=== PATIENT | male | born 1990 | race Hispanic/Latino ===

== ENCOUNTER 2021-07-06 18:57 | Emergency (ER) | payer SELFPAY ==
[~2021-07-06] VITALS: Ht 177.8 cm; Wt 90.7 kg
[2021-07-06 19:27] LABS: BASOPHILS % (AUTO) 0.5 % (0.0-5.0); EOSINOPHILS % (AUTO) 3.5 % (0.0-8.0); HEMATOCRIT 39.3 % (42-54); LYMPHOCYTES % (AUTO) 21.8 % (21.0-51.0); MEAN CORPUSCULAR HGB CONC 35.1 g/dL (32.0-36.0); MEAN CORPUSCULAR VOLUME 91.2 fL (79-99); MONOCYTES % (AUTO) 7.4 % (3.0-13.0); PLATELET COUNT (AUTO) 272 K/uL (130-400); RED BLOOD CELL COUNT(AUTO) 4.31 MIL/uL (4.50-6.20); RED CELL DISTRIBUTION WIDTH 11.9 % (11.0-15.5); WHITE BLOOD COUNT (AUTO) 9.9 K/uL (4.8-10.8)
[2021-07-06] MEDS ORDERED: HYDROCODONE/ACETAMINOPHEN 10/325 MG TAB PO ONE (19:30)
[2021-07-06] MEDS ORDERED: TETRACAINE HCL 0.5% 4 ML OPHTH SOLN OP SCH (19:30)
[2021-07-06 19:37] LABS: CREATININE 1.6 mg/dL (0.5-1.5); POTASSIUM 4.8 mmol/L (3.5-5.1)
[2021-07-06 19:42] LABS: ALBUMIN 3.7 g/dL (3.5-5.0); BILIRUBIN,TOTAL 0.3 mg/dL (0.2-1.0); CRP QUANTITATIVE 9.1 mg/L (0.00-9.0); TOTAL PROTEIN, SERUM 8.2 g/dL (6.0-8.3)
[2021-07-06] MEDS ORDERED: GENTAMICIN SULFATE 0.3% 5ML DROPS OS SCH (20:00)
[2021-07-06] MEDS ORDERED: 0.9%NACL 1000ML 1,000 ML IV ONE (20:30)
[2021-07-06] MEDS ORDERED: INSULIN HUMULIN R 100 UNIT/ML 3ML SQ ONE (20:30)
[2021-07-06 21:33] VITALS: BP 145/78
== END 2021-07-06 21:48 | disposition home or self-care (01) ==
LOC: EDH 18:57
DX: H10.9 Unspecified conjunctivitis (principal); E11.65 Type 2 diabetes mellitus with hyperglycemia; I10 Essential (primary) hypertension; Z79.4 Long term (current) use of insulin
CPT/HCPCS: 36415; 80053; 85025; 86140; 96360; 96372; 99284; J1815; J7030

== ENCOUNTER 2025-01-03 12:00 | Emergency (ER) | payer SELFPAY ==
[~2025-01-03] VITALS: Ht 177.8 cm; Wt 86.2 kg
[2025-01-03 12:03] VITALS: BP 123/71; PULSE 116; TEMP 98.1
[2025-01-03] MEDS: TETRACAINE HCL 0.5% 4 ML OPHTH SOLN OP ONE (12:53)
[2025-01-03 13:02] LABS: BASOPHILS # (AUTO) 0.03 K/uL (0.00-0.20); BASOPHILS % (AUTO) 0.3 % (0.0-5.0); EOSINOPHILS # (AUTO) 0.14 K/uL (0.00-0.70); EOSINOPHILS % (AUTO) 1.5 % (0.0-8.0); HEMATOCRIT 40.1 % (42-54); IMMATURE GRANULOCYTE ABSOLUTE 0.08 K/uL (0-1); LYMPHOCYTES # (AUTO) 1.7 K/uL (1.0-4.8); LYMPHOCYTES % (AUTO) 18.2 % (21.0-51.0); MEAN CORPUSCULAR HEMOGLOBIN 31.3 pg (27.0-33.0); MEAN CORPUSCULAR HGB CONC 35.4 g/dL (32.0-36.0); MEAN CORPUSCULAR VOLUME 88.3 fL (79-99); MONOCYTES # (AUTO) 0.5 K/uL (0.1-1.0); MONOCYTES % (AUTO) 4.9 % (3.0-13.0); NEUTROPHILS # (AUTO) 6.8 K/uL (1.8-7.7); NEUTROPHILS % (AUTO) 74.2 % (40.0-77.0); PLATELET COUNT (AUTO) 299 K/uL (130-400); RED BLOOD CELL COUNT(AUTO) 4.54 MIL/uL (4.50-6.20); RED CELL DISTRIBUTION WIDTH 11.8 % (11.0-15.5); WHITE BLOOD COUNT (AUTO) 9.2 K/uL (4.8-10.8)
[2025-01-03] MEDS: FLUORESCEIN SODIUM 1 STRIP STRIP ONE (13:05)
[2025-01-03] MEDS: FLUORESCEIN SODIUM 1 STRIP STRIP OP ONE (13:05)
[2025-01-03 13:11] LABS: CREATININE 1.5 mg/dL (0.5-1.3); POTASSIUM 5.1 mmol/L (3.5-5.1)
--- NOTE | 2025-01-03 13:32 | ERN ---
General Chief Complaint: Multiple Complaints Stated Complaint: MULTIPLE COMPLAINTS Time Seen by MD: 12:04 Source: patient History of Present Illness Initial Comments PATIENT IS A 34-YEAR-OLD MALE COMING IN COMPLAINING OF EYE PAIN. PATIENT STATES THAT THE EYE PAIN BEGAN YESTERDAY. HE ALSO STATES THAT HE DOES HAS A HISTORY UVEITIS. 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 Allergies: Coded Allergies: lisinopril (Unverified Allergy, Unknown, 07/06/21) Past Medical History Past Medical History: Diabetes-Type II, Hypertension Past Surgical History: None Family History Family History: Negative Social History Social History: Negative ROS Dictation CONSTITUTIONAL: NO CHILLS, NO FEVER, NO WEAKNESS, NO DIAPHORESIS, NO MALAISE. HEAD/FACE: NO SIGNS OF TRAUMA. EENT: NO EYE PAIN, NO BLURRED VISION, NO TEARING, NO DOUBLE VISION, NO EAR P AIN, NO EAR DISCHARGE, NO NOSE PAIN, NO NASAL CONGESTION, NO THROAT PAIN, NO THROAT SWELLING, NO MOUTH PAIN. RESPIRATORY: NO COUGH, NO ORTHOPNEA, NO SOB, NO STRIDOR, NO WHEEZING. CARDIOVASCULAR: NO CHEST PAIN, NO EDEMA, NO PALPITATIONS, NO SYNCOPE. GASTROINTESTINAL/ABDOMINAL: NO ABDOMINAL PAIN, NO CONSTIPATION, NO DIARRHEA, NO NAUSEA, NO VOMITING. GENITOURINARY: NO ABNORMAL DISCHARGE, NO DYSURIA, NO FREQUENT URINATION, NO HEMATURIA. NO COMPLAINTS OF PAIN IN THE GENITALS. MUSCULOSKELETAL: NO BACK PAIN, NO GOUT, NO JOINT PAIN, NO JOINT SWELLING, NO MUSCLE PAIN, NO MUSCLE STIFFNESS, NO NECK PAIN. INTEGUMENTARY: NO CHANGE IN COLOR, NO CHANGE IN HAIR/NAILS, NO DRYNESS, NO LESION, NO LUMPS, NO RASH. NEUROLOGICAL/PSYCH: NO ANXIETY, NOT DEPRESSED, NO EMOTIONAL PROBLEM, NO HEADACHE, NO NUMBNESS, NO PRE-EXISTING DEFICIT, NO HISTORY OF SEIZURES, NO TREMORS, NO WEAKNESS. HEMATOLOGIC/LYMPHATIC: NOT ANEMIC, NO HISTORY OF BLOOD CLOTS, NO APPARENT BLEEDING, NO BRUISING, GLANDS NOT SWOLLEN. ALL SYSTEMS NEGATIVE, EXCEPT NOTED. Physical Exam Physical Exam Dictation VITAL SIGNS: REVIEWED. GENERAL APPEARANCE: ALERT, ORIENTED X3, NO ACUTE DISTRESS, OBESE. HEAD AND FACE: NON-TRAUMATIC. EYES: PERRL, PINK CONJUNCTIVAS, EYELID NO TRAUMA, ANTERIOR CHAMBER CLEAR. EARS: PINNAS INTACT AND NO SIGNS OF TRAUMA OR ERYTHEMA. EAR CANALS CLEAR AND NO DISCHARGE. TMS NO ERYTHEMA. NOSE: NO DISCHARGE, NO BLEEDING. OROPHARYNX: MOUTH NORMAL, TEETH NO CARIES, TONGUE PINK. PHARYNX CLEAR, NO ERYTHEMA. TONSILS NO EXUDATES, NO ABSCESSES NOTED. MUCOUS MEMBRANE MOIST. NECK: SUPPLE, NON-TENDER, NO THYROMEGALY, NO MASSES, NO JVD, NO BRUITS. BREAST: DEFERRED. CHEST: NO TENDERNESS, NO CREPITUS, NO PARADOXICAL MOVEMENT, NO RETRACTIONS. LUNGS: CLEAR, WELL-VENTILATED, SYMMETRIC, NO RALES, NO WHEEZING, NO RHONCHI, NO STRIDOR, GOOD BREATH SOUNDS BILATERALLY. HEART: REGULAR RATE, REGULAR RHYTHM, NO MURMUR, NO GALLOPS. VASCULAR: NO PERIPHERAL EDEMA. ABDOMEN: SOFT, POSITIVE BOWEL SOUNDS, NONDISTENDED, NO GUARDING, NONTENDER, NO REBOUND, NO MASSES NO HEPATOMEGALY, NO SPLENOMEGALY, NO WEIR'S SIGN, NO HERNIAS. RECTAL: DEFERRED. GENITAL: DEFERRED. NEUROLOGICAL: NORMAL SPEECH, GROSS MOTOR FUNCTION INTACT, GROSS SENSORY FUNCTION INTACT. MUSCULOSKELETAL: NECK NONTENDER, FULL RANGE OF MOTION, BACK NONTENDER, FULL RANGE OF MOTION. EXTREMITIES: NONTENDER, FULL RANGE OF MOTION. SKIN: COLOR PINK, DRY, NO TURGOR, NO RASH, NO LACERATIONS, NO ABRASIONS, NO CONTUSIONS. LYMPHATICS: DEFERRED. Results Laboratory and Microbiology Lab and Micro Result Laboratory Tests Test 01/03/25 12:47 White Blood Count 9.2 K/uL (4.8-10.8) Red Blood Count 4.54 MIL/uL (4.50-6.20) Hemoglobin 14.2 g/dL (14.0-18.0) Hematocrit 40.1 % (42-54) L Mean Corpuscular Volume 88.3 fL (79-99) Mean Corpuscular Hemoglobin 31.3 pg (27.0-33.0) Mean Corpuscular Hemoglobin Concent 35.4 g/dL (32.0-36.0) Red Cell Distribution Width 11.8 % (11.0-15.5) Platelet Count 299 K/uL (130-400) Mean Platelet Volume 10.3 fL (7.5-10.5) Immature Granulocyte % (Auto) 0.9 % (0-1) Neutrophils (%) (Auto) 74.2 % (40.0-77.0) Lymphocytes (%) (Auto) 18.2 % (21.0-51.0) L Monocytes (%) (Auto) 4.9 % (3.0-13.0) Eosinophils (%) (Auto) 1.5 % (0.0-8.0) Basophils (%) (Auto) 0.3 % (0.0-5.0) Neutrophils # (Auto) 6.8 K/uL (1.8-7.7) Lymphocytes # (Auto) 1.7 K/uL (1.0-4.8) Monocytes # (Auto) 0.5 K/uL (0.1-1.0) Eosinophils # (Auto) 0.14 K/uL (0.00-0.70) Basophils # (Auto) 0.03 K/uL (0.00-0.20) Absolute Immature Granulocyte (auto 0.08 K/uL (0-1) Nucleated Red Blood Cells 0.0 % (0.0-0.19) Sodium Level 132 mmol/L (136-145) L Potassium Level 5.1 mmol/L (3.5-5.1) Chloride Level 96 mmol/L (101-111) L Carbon Dioxide Level 30 mmol/L (21-32) Blood Urea Nitrogen 15 mg/dL (7-18) Creatinine 1.5 mg/dL (0.5-1.3) H Glomerular Filtration Rate Calc 62 mL/min (>90) Random Glucose 392 mg/dL (70-105) H Total Calcium 9.2 mg/dL (8.5-10.1) Labs Reviewed?: Yes MDM MDM: DIFFERENTIAL DIAGNOSIS: CORNEAL ABRASION, CONJUNCTIVITIS, ACUTE GLAUCOMA, GLAUCOMA RATIONALE: TESTS CONSIDERED AND ORDERED SECONDARY TO SHARED DECISION MAKING INCLUDE: PREVIOUS OUTSIDE RECORDS REVIEWED: OLD ER VISITS. RISK OF COMPLICATION AND/OR MORBIDITY OR MORTALITY OF PATIENT MANAGEMENT: NONE MEDICATIONS-PER MEDICATION RECONCILIATION TO DR. VIDAL FROM [facility] IS EXPECTING PATIENT THERE. PATIENT WILL GO TO THE OFFICE IN 1205 E. APPOINTMENT SET UP BY [employer]. ED Course Orders Procedure Category Date Status Time Cbc With Differential LAB 01/03/25 Complete 12:30 Basic Metabolic Panel LAB 01/03/25 Complete 12:30 Tetracaine Hcl PHA 01/03/25 Complete (Pontocaine 0.5% 12:30 Fluorescein Sodium PHA 01/03/25 Complete (Fcvri-D-Vukyl At) 13:30 Fluorescein Sodium PHA 01/03/25 Complete (Xbtil-X-Zkfxo At) 13:03 0.9%Nacl 1000ml (Ns PHA 01/03/25 Complete 1000ml) 14:00 Insulin Regular, PHA 01/03/25 Complete Human 3ml (Humulin R 14:00 Tramadol Hcl (Ultram) PHA 01/03/25 Complete 14:00 Current Medications Medications (Trade) Dose Ordered Sig/Rosaura Route PRN Reason Start Time Stop Time Status Last Admin Dose Admin Fluorescein Sodium (Pvgeq-O-Nzfau At) 1 strip ONCE ONCE OP 01/03/25 13:30 01/03/25 13:31 DC 01/03/25 13:05 Fluorescein Sodium (Wtqdr-D-Dcbrr At) 1 strip STK-MED ONCE .ROUTE 01/03/25 13:03 01/03/25 13:03 DC Insulin Human Regular (humuLIN R 100 UNIT/ML 3ML) 5 unit ONCE ONCE IV 01/03/25 14:00 01/03/25 14:01 DC Sodium Chloride 1,000 ml @ 0 mls/hr ONCE ONCE IV 01/03/25 14:00 01/03/25 14:01 DC Tetracaine HCl (Pontocaine 0.5% Ophth Soln) 2 drop ONCE ONCE OP 01/03/25 12:30 01/03/25 12:33 DC 01/03/25 12:53 Tramadol HCl (UltRAM) 50 mg ONCE ONCE PO 01/03/25 14:00 01/03/25 14:01 DC Vital Signs Date Time Temp Pulse Resp B/P (MAP) Pulse Ox O2 Delivery O2 Flow Rate FiO2 01/03/25 12:03 98.1 116 18 123/71 99 Room Air DX & DISP Disposition: Discharge Departure Impression: Primary Impression: Acute right eye pain Additional Impression: History of uveitis Condition: Stable Additional Instructions: PATIENT WILL FOLLOW UP WITH DR. APRIL VIDAL AT THE [facility] WHO WE WILL BE EXPECTING PATIENT. Referrals: SELF,REFERRAL (PCP) Time of Disposition: 14:21 REJI MORRISON MD January 03, 2025 13:32
[2025-01-03] MEDS: traMADol HCL 50 MG TABLET PO ONE (14:45)
[2025-01-03] MEDS: 0.9%NACL 1000ML 1,000 ML IV ONE (14:46)
[2025-01-03] MEDS: INSULIN humuLIN R 100 UNIT/ML 3ML IV ONE (14:54)
[2025-01-03 15:40] VITALS: RESP 16; O2SAT 98
--- NOTE | 2025-01-03 15:40 | NUR ---
PATIENT TO FOLLOW UP WITH DR. APRIL VIDAL AT [facility]. PATIENT WAS WAS ADVISE THAT UPON LEAVING PATIENT FOLLOWS UP IN CLINIC SAME DAY. PATIENT VERBALIZES UNDERSTANDING.
--- NOTE | 2025-01-03 15:50 | NUR ---
PATIENT DC'D AT THIS TIME
== END 2025-01-03 16:17 | disposition home or self-care (01) ==
LOC: EDH 12:00
DX: H57.11 Ocular pain, right eye (principal); E11.9 Type 2 diabetes mellitus without complications; I10 Essential (primary) hypertension; Z88.8 Allergy status to other drugs, medicaments and biological substances
CPT/HCPCS: 99283; 96374; 80048; 85025; 82948 ×2; 36415; J1815; J7030